=== PATIENT | female | born 1965 | race African-American/Black ===

== ENCOUNTER 2016-07-13 22:11 | Emergency (ER) | payer OTHER ==
[2016-07-13] MEDS ORDERED: Cyclobenzaprine 10 MG TAB ONE (22:40)
[2016-07-13] MEDS ORDERED: traMADol HCl 50 MG TAB ONE (22:40)
--- NOTE | 2016-07-13 22:53 | ERRECORD ---
[facility] EMERGENCY RECORD HPI BACK (22:27 WMEI) CHIEF COMPLAINT: Denies injury, to the lower back, Patient presents for evaluation of pain, Patient presents for evaluation of tenderness. HISTORIAN: History provided by patient. MECHANISM OF INJURY: No apparent mechanism of injury, pt with chronic low back pain was traveling in car more than usual past 3 days. LOCATION: Symptoms are localized to the back, left lumbar region, right lumbar region. QUALITY: Pain is dull in nature. TIME COURSE: Gradual onset of symptoms. ASSOCIATED WITH: No associated dysuria, No associated fever, No associated sciatica. EXACERBATED BY: Patient's condition exacerbated by prolonged sitting. RELIEVED BY: Patient's condition relieved by nothing. ROS (22:29 WMEI) CONSTITUTIONAL: Historian denies chills, denies fever. EYES: Historian denies eye pain, denies eye discharge. ENT: Historian denies rhinorrhea, denies sore throat. CARDIOVASCULAR: Historian denies chest pain, no radiation. RESPIRATORY: Historian denies cough, denies shortness of breath. GI: Historian denies abdominal pain, denies nausea, denies vomiting. GENITOURINARY FEMALE: Historian denies dysuria, denies frequency. MUSCULOSKELETAL: Historian reports back pain, denies injury. SKIN: Historian denies skin changes, denies skin lesions. NEUROLOGIC: Historian denies confusion, denies mental status changes. PSYCHIATRIC: Historian denies alcohol abuse, denies anxiety, denies drug abuse. PAST MEDICAL HISTORY (22:21 MVIL) MEDICAL HISTORY: Past medical history includes cardiac history, congestive heart failure, , Past medical history includes history of hypertension, which has not been treated, Past medical history includes musculoskeletal disorder, chronic back pain,. REVIEWED 07/13/16. FEMALE SURGICAL HISTORY: Surgical history of spinal surgery, lumbar, Surgical history of tubal ligation, Surgical history of section, Notes: X5. REVIEWED 07/13/16. PSYCHIATRIC HISTORY: No previous psychiatric history. REVIEWED 07/13/16. SOCIAL HISTORY: Lives at home, with family, Patient has no smoking history, Patient denies alcohol use, Patient denies drug use. REVIEWED 07/13/16. FAMILY HISTORY: CHF, Family history includes hypertension. REVIEWED 07/13/16. &a-1R&a+25V*p+0X*n8251J*c202B*c15G*c2P*p-0X&a-25V&a+1R Name: Lilian Naik : 1965 F50 MedRec: [id number] AcctNum: [id number] Prepared: Vicenta Jul 14, 2016 03:38 by Interface Page 1 of 3 pMD [facility] EMERGENCY RECORD KNOWN ALLERGIES No Known Drug Allergies CURRENT MEDICATIONS (22:22 MVIL) None VITAL SIGNS VITAL SIGNS: BP: 174/108, Pulse: 107, Resp: 20, Temp: 98.0 (Oral), Pain: 9, O2 sat: 97 on Room Air, Time: 07/13/2016 22:13. (22:13 MVIL) Pain: 7, Time: 07/13/2016 22:42. (22:42 MVIL) Pain: 7, Time: 07/13/2016 22:43. (22:43 MVIL) PHYSICAL EXAM (22:30 WMEI) CONSTITUTIONAL: Vital Signs Reviewed, Patient appears non toxic, Patient alert and oriented to person, place and time. HEAD: Head exam normal, No contusions, no abrasions. EYES: Conjunctiva normal, Sclera normal. ENT: Ear exam normal, Nose exam normal. NECK: Neck exam included findings of normal range of motion, Trachea midline. RESPIRATORY CHEST: Breath sounds clear, Chest exam included findings of chest movement symmetrical. CARDIOVASCULAR: Cardiovascular exam included findings of heart rate regular rate and rhythm, Heart sounds normal. ABDOMEN FEMALE: Abdominal exam included findings of abdomen nontender, no mass. BACK: Back exam included findings of normal inspection, Range of motion, less than 30 degrees, limited by pain, no costovertebral angle tenderness, flex 45* ext 15*. UPPER EXTREMITY: Upper extremity exam included findings of inspection normal, Range of motion normal, Motor strength normal. LOWER EXTREMITY: Lower extremity exam included findings of inspection normal, Range of motion normal, Motor strength normal. NEURO: Neuro exam findings include patient oriented to person, place and time, [place] coma scale 15, Gait normal, Deep tendon reflexes normal, no focal motor deficits. SKIN: Skin exam included findings of skin warm, dry, and normal in color. LYMPHATIC: Lymphatic exam normal. PSYCHIATRIC: Psychiatric exam included findings of patient oriented to person place and time, Normal affect, Judgment normal, Insight normal. MEDICATION ADMINISTRATION SUMMARY Drug Name: Flexeril, Dose Ordered: 10 mg, Route: Oral, Status: Given, Time: 22:41 07/13/2016, Drug Name: traMADol, Dose Ordered: 50 mg, Route: Oral, Status: Given, &a-1R&a+25V*p+0X*h9421Y*c202B*c15G*c2P*p-0X&a-25V&a+1R Name: Lilian Naik : 1965 F50 MedRec: [id number] AcctNum: [id number] Prepared: Vicenta Jul 14, 2016 03:38 by Interface Page 2 of 3 pMD [facility] EMERGENCY RECORD Time: 22:41 07/13/2016, Detailed record available in Medication Service section. PROBLEM LIST No recorded problems DIAGNOSIS (22:34 WMEI) FINAL: PRIMARY: LOW BACK PAIN. PRESCRIPTION (22:27 WMEI) Flexeril: TABLET : 10 mg : ORAL : Quantity: 1 Unit: tab(s) Route: ORAL Schedule: 2 times a day (before meals) Dispense: 20 Unit: tab(s) May substitute. Refills: No Refills POTENTIAL SEVERE INTERACTION: traMADol (tramadol HCl) Override Rationale: Patient tolerated similar in past. NOTES: No refills. traMADol: TABLET : 50 mg : ORAL : Quantity: 1 Unit: tab(s) Route: ORAL Schedule: every 8 hours PRN Dispense: 21 Unit: tab(s) May substitute. Refills: No Refills POTENTIAL SEVERE INTERACTION: Flexeril (cyclobenzaprine HCl) Override Rationale: Patient tolerated similar in past. NOTES: ^s=No refills No refills. DISPOSITION PATIENT: Disposition Type: Discharge, Disposition: *Discharge Home. (22:34 WMEI) Patient left the department. (22:45 MVIL) Mathis: MVIL=CHENTE Hart Mariella WMEI=DO Tijerina William &a-1R&a+25V*p+0X*n2582T*c202B*c15G*c2P*p-0X&a-25V&a+1R Name: Lilian Naik Gisela : 1965 F50 MedRec: [id number] AcctNum: [id number] Prepared: Vicenta Jul 14, 2016 03:38 by Interface Page 3 of 3 pMD MTDD
--- NOTE | 2016-07-13 22:59 | PICIS ---
[facility] EMERGENCY RECORD TRIAGE (22:19 MVIL) TRIAGE NOTES: C/O LOWER BACK SPASMS SINCE 7PM. APPLIED BENGAY TO AREA WITH NO RELIEF. (22:19 MVIL) PATIENT: NAME: Lilian Naik, AGE: 50, GENDER: female, : Fri1965, TIME OF GREET: Sat Jul 13, 2016 22:11, PREFERRED LANGUAGE: Hebrew, ETHNICITY: Not or , ECODE BILLING MAP: [facility], SSN: [id number], Zip Code: [address], KG WEIGHT: 103.42, HEIGHT/LENGTH: 160.02cm, BMI: 40.38, PHONE: , , , PERSON ID: [id number], PAYMENT: X Medicaid, PCP: UNKNOWN. (22:19 MVIL) COMPLAINT: BACK SPASMS. (22:19 MVIL) ADMISSION: URGENCY: 4 Non Urgent, ADMISSION SOURCE: Home, TRANSPORT: CAR, BED: ER -02. (22:19 MVIL) ASSESSMENT: Assessment: LOWER BACK SPASMS SINCE 7PM TONIGHT., Symptoms began 07/13/2016 22:21, Symptoms began 3 hours ago. (22:21 MVIL) PAIN: Patient complains of pain described as, aching, on a scale 0-10 patient rates pain as 9, Pain is constant, No aggravating factors, No efforts tried to relieve symptoms. (22:21 MVIL) IMMUNIZATIONS: Flu vaccine up to date, Tetanus immunization up to date, Pneumococcal vaccine up to date. (22:21 MVIL) SIRS SCORING: Heart Rate 55-109 (0), Temp range 96.8-101.1 (0), respiratory rate 12-24 (0), Mental Status altered: no (0). (22:21 MVIL) TRIAGE SCREENING: Patient denies suicidal ideation, Patient denies presence of domestic violence. (22:21 MVIL) PROVIDERS: TRIAGE NURSE: Janeth Hart RN. (22:19 MVIL) VITAL SIGNS: BP 174/108, Pulse 107, Resp 20, Temp 98.0, (Oral), Pain 9, O2 Sat 97, on Room Air, Time 07/13/2016 22:13. (22:13 MVIL) PREVIOUS VISIT ALLERGIES: No Known Drug Allergies. (22:19 MVIL) No Known Drug Allergies. (22:21 MVIL) KNOWN ALLERGIES No Known Drug Allergies CURRENT MEDICATIONS (22:22 MVIL) None VITAL SIGNS VITAL SIGNS: BP: 174/108, Pulse: 107, Resp: 20, Temp: 98.0 (Oral), Pain: 9, O2 sat: 97 on Room Air, Time: 07/13/2016 22:13. (22:13 MVIL) Pain: 7, Time: 07/13/2016 22:42. (22:42 MVIL) Pain: 7, Time: 07/13/2016 22:43. (22:43 MVIL) NURSING ASSESSMENT: BACK (22:22 MVIL) CONSTITUTIONAL: Patient arrives ambulatory, Gait steady, History obtained from patient, Patient appears comfortable, Patient &a-1R&a+25V*p+0X*[id number]*c202B*c15G*c2P*p-0X&a-25V&a+1R Name: Lilian Naik : 1965 F50 MedRec: [id number] AcctNum: [id number] Prepared: Vicenta Jul 14, 2016 03:38 by Interface Page 1 of 6 pMD [facility] EMERGENCY RECORD cooperative, Patient alert, Oriented to person, place and time, Skin warm, Skin dry, Skin normal in color, Mucous membranes pink, Mucous membranes moist, Patient is well-groomed, Patient complains of LOWER BACK SPASMS, SINCE 7PM TONIGHT. APPLIED BENGAY TO AFFECTED AREA AND NO RELIEF IN SYMPTOMS. PAIN: aching pain, to the lower back, Onset of pain 07/13/2016 22:23, constant, on a scale 0-10 patient rates pain as 9, Pain exacerbated by nothing, Nothing has been tried to alleviate the pain. BACK: Back assessment findings include tenderness to, muscular. NECK: Neck assessment findings include trachea midline, no jugular vein distention noted, no pain with range of motion. NURSING PROCEDURE: DISCHARGE NOTE (22:42 MVIL) DISCHARGE: Patient discharged to home, ambulating without assistance, family driving, accompanied by other family member, Summary of Care printed/ provided, Patient requested and was provided an electronic copy of Discharge Instructions, Transition record given to patient, Discharge instructions given to patient, Prescriptions given and instructions on side effects given, Name of prescription(s) given: TRAMADOL AND FLEXERIL, Medication reconciliation form given, Above person(s) verbalized understanding of discharge instructions and follow-up care. BELONGINGS: Belongings and valuables with patient at time of discharge include:. MEDICATION ADMINISTRATION SUMMARY Drug Name: Flexeril, Dose Ordered: 10 mg, Route: Oral, Status: Given, Time: 22:41 07/13/2016, Drug Name: traMADol, Dose Ordered: 50 mg, Route: Oral, Status: Given, Time: 22:41 07/13/2016, Detailed record available in Medication Service section. MEDICATION SERVICE Flexeril: Order: Flexeril (cyclobenzaprine HCl) - Dose: 10 mg : Oral Schedule: Now Ordered by: Dwight Tijerina DO Entered by: Dwight Tijerina DO Sat Jul 13, 2016 22:25 Documented as given by: Janeth Hart RN Sat Jul 13, 2016 22:41 Patient, Medication, Dose, Route and Time verified prior to administration. Amount given: 10MG, Correct patient, time, route, dose and medication confirmed prior to administration, Patient advised of actions and side-effects prior to administration, Allergies confirmed and medications reviewed prior to administration, Patient in position of comfort, Side rails up, Cart in lowest position, Family at &a-1R&a+25V*p+0X*p5930R*c202B*c15G*c2P*p-0X&a-25V&a+1R Name: Gumaro Lilian Higgins : 1965 F50 MedRec: [id number] AcctNum: [id number] Prepared: Vicenta Jul 14, 2016 03:38 by Interface Page 2 of 6 pMD [facility] EMERGENCY RECORD bedside. Flexeril: Response assessment performed, No signs or symptoms of allergic reaction noted, Decreased pain, Pain: 7. (22:43 MVIL) traMADol: Order: traMADol (tramadol HCl) - Dose: 50 mg : Oral POTENTIAL SEVERE INTERACTION: Flexeril (cyclobenzaprine HCl) - Patient tolerated similar in past Schedule: Now Ordered by: Dwight Tijerina DO Entered by: Dwight Tijerina DO Sat Jul 13, 2016 22:26 Documented as given by: Janeth Hart RN Sat Jul 13, 2016 22:41 Patient, Medication, Dose, Route and Time verified prior to administration. Amount given: 50MG, Correct patient, time, route, dose and medication confirmed prior to administration, Patient advised of actions and side-effects prior to administration, Allergies confirmed and medications reviewed prior to administration, Patient in position of comfort, Side rails up, Cart in lowest position, Family at bedside. traMADol: Response assessment performed, No signs or symptoms of allergic reaction noted, Decreased pain, Pain: 7. (22:42 MVIL) HPI BACK (22:27 WMEI) CHIEF COMPLAINT: Denies injury, to the lower back, Patient presents for evaluation of pain, Patient presents for evaluation of tenderness. HISTORIAN: History provided by patient. MECHANISM OF INJURY: No apparent mechanism of injury, pt with chronic low back pain was traveling in car more than usual past 3 days. LOCATION: Symptoms are localized to the back, left lumbar region, right lumbar region. QUALITY: Pain is dull in nature. TIME COURSE: Gradual onset of symptoms. ASSOCIATED WITH: No associated dysuria, No associated fever, No associated sciatica. EXACERBATED BY: Patient's condition exacerbated by prolonged sitting. RELIEVED BY: Patient's condition relieved by nothing. ROS (22:29 WMEI) CONSTITUTIONAL: Historian denies chills, denies fever. EYES: Historian denies eye pain, denies eye discharge. ENT: Historian denies rhinorrhea, denies sore throat. CARDIOVASCULAR: Historian denies chest pain, no radiation. RESPIRATORY: Historian denies cough, denies shortness of breath. GI: Historian denies abdominal pain, denies nausea, denies vomiting. GENITOURINARY FEMALE: Historian denies dysuria, denies frequency. &a-1R&a+25V*p+0X*m7784S*c202B*c15G*c2P*p-0X&a-25V&a+1R Name: Lilian Naik : 1965 F50 MedRec: [id number] AcctNum: [id number] Prepared: Vicenta Jul 14, 2016 03:38 by Interface Page 3 of 6 pMD [facility] EMERGENCY RECORD MUSCULOSKELETAL: Historian reports back pain, denies injury. SKIN: Historian denies skin changes, denies skin lesions. NEUROLOGIC: Historian denies confusion, denies mental status changes. PSYCHIATRIC: Historian denies alcohol abuse, denies anxiety, denies drug abuse. PAST MEDICAL HISTORY (22:21 MVIL) MEDICAL HISTORY: Past medical history includes cardiac history, congestive heart failure, , Past medical history includes history of hypertension, which has not been treated, Past medical history includes musculoskeletal disorder, chronic back pain,. REVIEWED 07/13/16. FEMALE SURGICAL HISTORY: Surgical history of spinal surgery, lumbar, Surgical history of tubal ligation, Surgical history of section, Notes: X5. REVIEWED 07/13/16. PSYCHIATRIC HISTORY: No previous psychiatric history. REVIEWED 07/13/16. SOCIAL HISTORY: Lives at home, with family, Patient has no smoking history, Patient denies alcohol use, Patient denies drug use. REVIEWED 07/13/16. FAMILY HISTORY: CHF, Family history includes hypertension. REVIEWED 07/13/16. PHYSICAL EXAM (22:30 WMEI) CONSTITUTIONAL: Vital Signs Reviewed, Patient appears non toxic, Patient alert and oriented to person, place and time. HEAD: Head exam normal, No contusions, no abrasions. EYES: Conjunctiva normal, Sclera normal. ENT: Ear exam normal, Nose exam normal. NECK: Neck exam included findings of normal range of motion, Trachea midline. RESPIRATORY CHEST: Breath sounds clear, Chest exam included findings of chest movement symmetrical. CARDIOVASCULAR: Cardiovascular exam included findings of heart rate regular rate and rhythm, Heart sounds normal. ABDOMEN FEMALE: Abdominal exam included findings of abdomen nontender, no mass. BACK: Back exam included findings of normal inspection, Range of motion, less than 30 degrees, limited by pain, no costovertebral angle tenderness, flex 45* ext 15*. UPPER EXTREMITY: Upper extremity exam included findings of inspection normal, Range of motion normal, Motor strength normal. LOWER EXTREMITY: Lower extremity exam included findings of inspection normal, Range of motion normal, Motor strength normal. NEURO: Neuro exam findings include patient oriented to person, place and time, [place] coma scale 15, Gait normal, Deep tendon reflexes normal, no focal motor deficits. &a-1R&a+25V*p+0X*x9561C*c202B*c15G*c2P*p-0X&a-25V&a+1R Name: Lilian Naik : 1965 F50 MedRec: [id number] AcctNum: [id number] Prepared: Vicenta Jul 14, 2016 03:38 by Interface Page 4 of 6 pMD [facility] EMERGENCY RECORD SKIN: Skin exam included findings of skin warm, dry, and normal in color. LYMPHATIC: Lymphatic exam normal. PSYCHIATRIC: Psychiatric exam included findings of patient oriented to person place and time, Normal affect, Judgment normal, Insight normal. EVENTS TRANSFER: Triage to Emergency Emergency Room -02. (Sat Jul 13, 2016 22:19 MVIL) Removed from Emergency Emergency Room -02. (22:45 MVIL) PROBLEM LIST No recorded problems DIAGNOSIS (22:34 WMEI) FINAL: PRIMARY: LOW BACK PAIN. DISPOSITION PATIENT: Disposition Type: Discharge, Disposition: *Discharge Home. (22:34 WMEI) Patient left the department. (22:45 MVIL) INSTRUCTION (22:35 WMEI) DISCHARGE: LOW BACK PAIN GENERAL. SPECIAL: Follow-up with your primary physician as needed. PRESCRIPTION (22:27 WMEI) Flexeril: TABLET : 10 mg : ORAL : Quantity: 1 Unit: tab(s) Route: ORAL Schedule: 2 times a day (before meals) Dispense: 20 Unit: tab(s) May substitute. Refills: No Refills POTENTIAL SEVERE INTERACTION: traMADol (tramadol HCl) Override Rationale: Patient tolerated similar in past. NOTES: No refills. traMADol: TABLET : 50 mg : ORAL : Quantity: 1 Unit: tab(s) Route: ORAL Schedule: every 8 hours PRN Dispense: 21 Unit: tab(s) May substitute. Refills: No Refills POTENTIAL SEVERE INTERACTION: Flexeril (cyclobenzaprine HCl) Override Rationale: Patient tolerated similar in past. NOTES: ^s=No refills No refills. IMAGING *DISCHARGE INSTRUCTIONS RECEIPT: Image captured from scanner. (22:43 MVIL) *SUPPLY CHARGE SHEET: Image captured from scanner. (22:44 MVIL) ADMIN (Vicenta Jul 14, 2016 03:36 WMEI) &a-1R&a+25V*p+0X*o3626I*c202B*c15G*c2P*p-0X&a-25V&a+1R Name: Lilian Naik : 1965 F50 MedRec: [id number] AcctNum: [id number] Prepared: Vicenta Jul 14, 2016 03:38 by Interface Page 5 of 6 pMD [facility] EMERGENCY RECORD DIGITAL SIGNATURE: DO Tijerina William. Mathis: MVIL=CHENTE aHrt, Janeth WMEI=DO Tijerina William &a-1R&a+25V*p+0X*k7824J*c202B*c15G*c2P*p-0X&a-25V&a+1R Name: Lilian Naik : 1965 F50 MedRec: [id number] AcctNum: [id number] Prepared: Vicenta Jul 14, 2016 03:38 by Interface Page 6 of 6 pMD MTDD
== END 2016-07-13 22:43 | disposition home or self-care (01) ==
LOC: BURERS 22:11
DX: M54.5 Low back pain (principal); I50.9 Heart failure, unspecified; I10 Essential (primary) hypertension
CPT/HCPCS: 99283

== ENCOUNTER 2020-08-12 18:06 | Emergency (ER) | payer OTHER ==
[2020-08-12] MEDS ORDERED: Lidocaine 1% w/Epinephrine 1:100K 20 ML VIAL ONE (19:04)
[2020-08-12] MEDS ORDERED: Ibuprofen 800 MG TAB ONE (19:28)
[2020-08-12] MEDS ORDERED: Amoxicillin/Potassium Clav 875 MG TAB ONE (19:28)
== END 2020-08-12 19:35 | disposition home or self-care (01) ==
LOC: BURERS 18:06
DX: L02.212 Cutaneous abscess of back [any part, except buttock and flank] (principal); J45.909 Unspecified asthma, uncomplicated; I10 Essential (primary) hypertension
CPT/HCPCS: 10060